=== PATIENT | male | born 1985 | race Caucasian/White ===

== ENCOUNTER 2016-05-31 02:20 | Emergency (ER) | payer SELFPAY ==
[2016-05-31] MEDS ORDERED: Sodium Chloride 0.9% 1,000 ML IV ONE ×2 (02:44→07:01)
--- NOTE | 2016-05-31 02:53 | ED Physician Chart ---
Chief Complaint/HPI - Patient Information Date Seen:: 05/31/16 Time Seen:: 02:30 Chief Complaint:: RLQ abdominal pain History of Present Illness:: onset 3 hr ago of RLQ abdominal pain. Vomited 4 times. Stools are loose. Discharged yesterday from [facility] after a 30 day admission. Two weeks ago had surgery for superior mesenteric artery syndrome. Historian:: Patient Review:: Nurse's Note Reviewed Review of Systems - Review of Systems General/Constitutional: No fever, No chills Skin: No skin lesions Head: No headache Eyes: No loss of vision ENT: No earache Neck: No neck pain Cardio Vascular: No chest pain Pulmonary: No SOB GI: Nausea, Vomiting, Pain G/U: No dysuria Musculoskeletal: No bone or joint pain Endocrine: No polyuria Psychiatric: No prior psych history Past Medical History - Past Medical History Past Medical History: Asthma/COPD, Seizures, Other (cirrhosis; hepatitis C) Family History: Cancer Social History: Other (quit smoking one year ago and quit drinking 3 years ago) Surgical History: other (see under history) Medication: Reviewed Family Medical History - Family Member Mother Hx Family Coronary Artery Disease: Yes Hx Family Hypertension: Yes Physical Exam - Physical Examination General/Constitutional: Well-developed, well-nourished, No distress Head: Atraumatic Eyes: Lids, conjuctiva normal, PERRL Skin: Nl inspection ENMT: External ears, nose nl, TM canals nl, Nasal exam nl Neck: No nuchal rigidity Respiratory: Nl effort/Exclusion, Clear to Auscultation, No Wheeze/Rhonchi/Rales Cardio Vascular: RRR GI: No organomegaly, No hernia, Normal BS's, Nondistended, No mass/bruits Other GI comments:: RLQ tenderness; LUQ drain : No CVA tenderness Extremities: No tenderness or effusion Neuro/Psych: Alert/oriented, No focal deficits Misc: No paraspinal tenderness Labs/Radiology/EKG Results - Lab Results Results: Laboratory Results - last 24 hr 05/31/16 05/31/16 03:00 03:00 WBC 9.7 RBC 3.44 L Hgb 10.3 L Hct 29.2 L MCV 85.1 MCH 30.0 MCHC Differential 35.3 RDW 12.8 Plt Count 407 H MPV 6.8 Neutrophils (Manual) 85 H Lymphocytes 6 L Monocytes 8 Eosinophils 1 Platelet Estimate ADEQUATE Platelet Morphology NORMAL RBC Morph Micro Appear NORMAL Sodium 135 L Potassium 4.1 Chloride 98 Carbon Dioxide 28.6 Anion Gap 12.5 BUN 23 Creatinine 0.6 L Est GFR ( Amer) > 60.0 Est GFR (Non-Af Amer) > 60.0 BUN/Creatinine Ratio 38.3 Glucose 91 Calcium 10.1 Lipase 43 - Radiology Results Results: CT abdomen and pelvis: multiple mildly dilated fluid-filled loops of small bowel compatible with developing obstruction, ile.us or gastroenteritis ED Septic Shock - . Is Septic Shock (SBP<90, OR Lactate>4 mmol\L) present?: No Reassessment (Disposition) - Reassessment Reassessment Condition:: Unchanged - Diagnosis Diagnosis:: abdominal pain; possible early small bowel obstruction; anemia; hypomagnesemia; s/p recent laparotomy - Patient Disposition Admitted to:: Med/Surg Spoke to:: Candido Steven Admitting Medical Physician:: Candido Steven Condition at Disposition:: Stable, Unchanged
[2016-05-31 03:08] LABS: HEMATOCRIT 29.2 % (39.0-49.0); HEMOGLOBIN 10.3 gm/dL (13.2-17.3); MEAN CELL VOLUME 85.1 fl (80-99); MEAN CORPUSCULAR HGB CONC 35.3 pg (28.0-36.0); MEAN PLATELET VOLUME 6.8 fl; PLATELET COUNT 407 Th/cmm (150-400); RED BLOOD COUNT 3.44 Mil/cmm (4.30-5.70); RED CELL DISTRIBUTION WIDTH 12.8 % (11.5-20.0); WHITE BLOOD COUNT 9.7 Th/cmm (4.8-10.8)
[2016-05-31 03:21] LABS: ANION GAP 12.5 (7.0-16.0); BUN - UREA NITROGEN 23 mg/dL (7-25); BUN/CREATININE RATIO 38.3; CALCIUM SERUM 10.1 mg/dL (8.6-10.3); CARBON DIOXIDE 28.6 mEq/L (21.0-31.0); CHLORIDE 98 mEq/L (98-107); CREATININE - SERUM 0.6 mg/dL (0.7-1.3); GLUCOSE 91 mg/dL (70-105); LIPASE 43 U/L (11-82); POTASSIUM SERUM 4.1 mEq/L (3.5-5.1); SODIUM SERUM 135 mEq/L (136-145)
[2016-05-31 03:30] LABS: EOSINOPHIL 1 % (0-5); NEUTROPHILS 85 % (40-80); TOTAL CELLS COUNTED 100
[2016-05-31 03:32] LABS: PLATELET ESTIMATE ADEQUATE (NORMAL); PLATELET MORPHOLOGY NORMAL (NORMAL)
[2016-05-31] MEDS ORDERED: HYDROmorphone 1 mg/mL 1mL Syr IVP STA (04:16)
[2016-05-31] MEDS ORDERED: HYDROmorphone 1 mg/mL 1mL Syr ONE (04:39)
[2016-05-31] MEDS ORDERED: Mag Sulfate 2gm/50mL Premix 2 GM/50 ML BAG IV ONE ×2 (06:46→07:03)
[2016-05-31] MEDS ORDERED: D5-0.9%NS 1,000 ML IV SCH (07:12)
[2016-05-31 07:26] LABS: URINE BILIRUBIN NEGATIVE (NEGATIVE); URINE BLOOD NEGATIVE (NEGATIVE); URINE COLOR YELLOW; URINE GLUCOSE (UA) NEGATIVE (NEGATIVE); URINE KETONE NEGATIVE (NEGATIVE); URINE PROTEIN NEGATIVE (NEGATIVE); URINE UROBILINOGEN 0.2 E.U./dL (0.2 - 1.0)
[2016-05-31] MEDS ORDERED: HYDROmorphone 2 mg/mL 1mL Vial IVP PRN (09:26)
--- NOTE | 2016-05-31 12:52 | History & Physical ---
CHIEF COMPLAINT: Intractable abdominal pain. HISTORY OF PRESENT ILLNESS: The patient is a 31-year-old male[place] He recently was discharged from [facility], just yesterday. He was there for 30 days. He is status post 2 surgeries for small bowel obstruction. He came in to the ER because of severe pain. He states that at home he cannot rest and oral medications were not working for his pain. He is postop. CT of the abdomen and pelvis was done in the ER and per ER physician, there is a possible SBO. However, the patient states that he has been having regular bowel movements and he just came for his pain medication. SOCIAL HISTORY: The patient quit smoking 3 years ago. He also drinks socially. No history of drug abuse according to him. FAMILY HISTORY: Noncontributory. ALLERGIES: No known drug allergies. SURGICAL HISTORY: Positive for 2 abdominal surgeries within the last 30 days. MEDICATIONS: He is on multiple pain medications at home. REVIEW OF SYSTEMS: GENERAL: Positive recent fatigue. HEENT: Negative. NECK: No recent tracheal deviation. CARDIOVASCULAR: Denies any chest pain or palpitation. ABDOMEN: Positive for pain. NEUROLOGIC: No history of stroke or seizures. PSYCHIATRIC: No history of psychosis or hallucinations. SKIN: No recent rashes. MUSCULOSKELETAL: No history of DJD. PHYSICAL EXAMINATION: VITAL SIGNS: Temperature is 98.4 degrees, heart rate is 94, respirations 18, blood pressure ____/47. Currently, the pain is 5/10. GENERAL: No acute distress, awake, alert. HEENT: Within normal limits. NECK: Trachea is midline. CARDIOVASCULAR: Regular rate and rhythm. RESPIRATORY: Decreased breath sounds bilaterally. ABDOMEN: His surgical site shows no redness or erythema. The wound is closed. There is no discharge. EXTREMITIES: No edema. SKIN: No rashes. PSYCHIATRIC: No psychosis or hallucinations. LABORATORY DATA: White count is 9.7, hemoglobin 10.3, platelet count is 407,000, PT 25.4. Sodium 135, potassium 4.1, chloride 98, bicarbonate 28.6, BUN 23, creatinine 0.6. Lipase is 43, magnesium is 1.6. ASSESSMENT: 1. Intractable abdominal pain. 2. Status post small bowel obstruction. 3. Opiate dependence. PLAN: The patient was going to be admitted as the CT shows possible SBO. However, he states that he has been having regular bowel movements and the fact that he is postop and is being considered into the CT. Also, the patient says he just came here for IV pain medication, so that he can go home and rest. He is currently asymptomatic as far as any small bowel obstruction is concerned. He has been having regular bowel movements. There is no nausea. He just wants IV Dilaudid. JOB# [id number]
--- NOTE | 2016-05-31 13:49 | Diagnostic Imaging Report ---
CT abdomen and pelvis without intravenous contrast Indication: Right lower quadrant pain Comparison: None, Technique: Axial images were obtained from the lung bases to the bilateral proximal femurs without IV contrast. Coronal reconstructions were made. total DLP: 281, CTDI6 FINDINGS: Hypoventilatory atelectatic changes of the lung bases are noted. Assessment of the solid organs is limited to the lack of IV contrast. No evidence of focal hepatic lesions. Distended gallbladder seen with no evidence of radiopaque gallstones. No focal splenic or pancreatic lesions. No focal adrenal lesions. No evidence of hydronephrosis or nephrolithiasis. There is copious amount of stool throughout the colon. Postsurgical changes are seen within the small bowel loops along left hemiabdomen and within the right lower quadrant. Multiple moderately distended loops of small bowel are noted. Appendix is not visualized and may have been removed. A percutaneous gastric feeding tube is noted. No evidence of free air or free fluid. Old trauma versus limbus vertebral body seen along the anterior/superior endplate of L4. 3 mm posterior disc osteophyte complex is also seen at L1/L2. IMPRESSION: Limited exam due to lack of IV and oral contrast. Multiple mild to moderately distended fluid-filled loops of small bowel. Postsurgical changes of small bowel loops are also noted. These findings may be due to infectious/inflammatory processes or partial small bowel obstruction. Clinical correlation and follow-up is recommended. Copious stool throughout the colon. The appendix was not visualized and may have been removed. Please correlate clinically. Distended gallbladder. Consider further assessment with ultrasound.
--- NOTE | 2016-05-31 21:54 | Discharge Summary ---
CAUSE OF ADMISSION: The patient is a 31-year-old male. He is status post small-bowel obstruction surgery x 2. He was just discharged yesterday from [facility]. He states that he could not rest at home, so he came to the hospital for IV pain medication. ADMITTING DIAGNOSES: 1. Intractable abdominal pain. 2. Status post small-bowel obstruction. 3. Opiate dependence. DISCHARGE DIAGNOSES: As above. SUMMARY OF HOSPITAL COURSE: CT scan of the abdomen was done, which shows the following multiple mildly dilated fluid-filled loops of small bowel present. Some of the small bowel loops are measuring up to 3.2 cm, considered developing obstruction, ileus, or gastroenteritis. Stool and gas throughout the colon can be seen with no colitis or diverticulitis. Possible gallbladder sludge, otherwise most of the labs are noncontributory. The patient has been having regular bowel movements. He states he is not obstructed it at all. The findings on the CT reflect his recent surgeries. The patient just wants pain medications. DISCHARGE MEDICATIONS: I will give him IV Dilaudid 2 mg now. He states that it works for him. DISPOSITION: He is being discharged home. MEDICATIONS: I have given him a script for p.o. Dilaudid and p.o. Zofran as well. He is to follow with his primary care doctor within one week of discharge. JOB# [id number]
== END 2016-05-31 10:33 | disposition home or self-care (01) ==
LOC: ER 02:20 → MSI 07:07 → UNDOADMIN 07:07 → ER 10:33
DX: R10.31 Right lower quadrant pain (principal); E83.42 Hypomagnesemia; D64.9 Anemia, unspecified; J44.9 Chronic obstructive pulmonary disease, unspecified; J45.909 Unspecified asthma, uncomplicated; K74.60 Unspecified cirrhosis of liver; Z86.19 Personal history of other infectious and parasitic diseases; Z87.891 Personal history of nicotine dependence; Z88.6 Allergy status to analgesic agent; Z88.8 Allergy status to other drugs, medicaments and biological substances; Z91.013 Allergy to seafood
CPT/HCPCS: 99285; 96361; 74176; 96365; 96375; 96376; 36415; 85007; 85027; 85730; 81003; 83690; 83735; 80048; J3475; J2405 ×2; J1170; J7030